=== PATIENT | female | born 1985 | race Caucasian/White ===

== ENCOUNTER 2021-07-22 16:51 | Emergency (ER) | payer MEDICAID ==
--- NOTE | 2021-07-22 17:53 | EDM.PDOC ---
ED HPI GENERAL MEDICAL PROBLEM - General Chief Complaint: Upper Extremity Injury/Pain Stated Complaint: R SHOULDER AND ARM PAIN/NUMBNESS Time Seen by Provider: 07/22/21 17:30 Source of Information: Reports: Patient, Old Records, RN History Limitations: Reports: No Limitations - History of Present Illness INITIAL COMMENTS - FREE TEXT/NARRATIVE: 36 yo female with a reported hx of cervical disc herniation had a fall a couple weeks ago in her shower. Since that time she has been experiencing increased pain in her neck and down into her R arm and also her upper back in the midline. She was seen right after the fall in the clinic and she says they didn't do much. She also states that now her Tramadol Rx was "lost" at [facility]. Since the clinic is closed today she is not able to straighten this out with them. 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: Other (see below) (usual meds) Bilateral Arm Pain Score (Numeric/FACES): 9 - Related Data Allergies Allergy/AdvReac Type Severity Reaction Status Date / Time amoxicillin [From Augmentin] Allergy Rash Verified 07/22/21 17:14 clavulanic acid Allergy Rash Verified 07/22/21 17:14 [From Augmentin] sulfamethoxazole Allergy Rash Verified 07/22/21 17:14 [From Septra] trimethoprim [From Septra] Allergy Rash Verified 07/22/21 17:14 Home Meds: Home Meds Acetaminophen [Tylenol Arthritis] 650 mg PO Q6H PRN 04/01/19 [History] Spironolactone [Aldactone] 50 mg PO BID 04/01/19 [History] Cholecalciferol (Vitamin D3) [Vitamin D3] 50 mcg PO DAILY 07/22/21 [History] Clindamycin Phosphate [Cleocin T 1% Gel] 0 gm TOP DAILY 07/22/21 [History] DULoxetine [Cymbalta] 90 mg PO DAILY 07/22/21 [History] Gabapentin [Neurontin] 600 mg PO Q4HR 07/22/21 [History] Levonorgestrel/Ethin.estradiol [Aviane-28 Tablet] 1 tab PO DAILY 07/22/21 [History] Lisdexamfetamine Dimesylate [Vyvanse] 40 mg PO DAILY 07/22/21 [History] Lisdexamfetamine [Vyvanse] 50 mg PO DAILY 07/22/21 [History] [place] Carbonate 300 mg PO BID 07/22/21 [History] Loratadine [Claritin] 10 mg PO DAILY 07/22/21 [History] Meloxicam 7.5 mg PO BID 07/22/21 [History] Minocycline [Minocin] 100 mg PO BID 07/22/21 [History] Oxybutynin Chloride [Oxybutynin Chloride ER] 10 mg PO BEDTIME 07/22/21 [History] Polyethylene Glycol [Polyox Wsr-301] 1 gm MC DAILY 07/22/21 [History] Sennosides/Docusate Sodium [Stool Softener-Laxative] 1 tab PO DAILY 07/22/21 [History] busPIRone [Buspar] 10 mg PO TID 07/22/21 [History] tiZANidine [Zanaflex] 4 mg PO DAILY 07/22/21 [History] traMADol HCl [Tramadol HCl ER] 200 mg PO DAILY 07/22/21 [History] traMADol [Ultram] 50 mg PO Q4H PRN 07/22/21 [History] traMADol [Ultram] 50 mg PO Q6H PRN #12 tablet 07/22/21 [Rx] Past Medical History HEENT History: Reports: Impaired Vision, Other (See Below) Other HEENT History: dry eyes Genitourinary History: Reports: Other (See Below) Other Genitourinary History: "leaky bladder" Musculoskeletal History: Reports: Back Pain, Chronic, Fibromyalgia, Neck Pain, Chronic Psychiatric History: Reports: Bipolar Endocrine/Metabolic History: Reports: Obesity/BMI 30+ Dermatologic History: Reports: Other (See Below) Other Dermatologic History: "boils" - Infectious Disease History Infectious Disease History: Reports: Herpes - Past Surgical History Neurological Surgical History: Reports: Discectomy, Lumbar Spine Musculoskeletal Surgical History: Reports: Arthroscopic Knee Social & Family History - Tobacco Use Tobacco Use Status *Q: Former Tobacco User Used Tobacco, but Quit: Yes Month/Year Tobacco Last Used: 1 year - Caffeine Use Caffeine Use: Reports: None - Recreational Drug Use Recreational Drug Use: No Review of Systems - Review of Systems Review Of Systems: See Below Constitutional: Reports: No Symptoms Eyes: Reports: No Symptoms Musculoskeletal: Reports: Shoulder Pain (R shoulder and neck) Skin: Reports: No Symptoms Neurological: Reports: Tingling (down right arm) ED EXAM, GENERAL - Physical Exam Exam: See Below Exam Limited By: No Limitations General Appearance: Alert, WD/WN, No Apparent Distress, Obese Head: Atraumatic, Normocephalic Neck: Limited Range of Motion (slight decrease) Respiratory/Chest: No Respiratory Distress Back Exam: Normal Inspection Extremities: Normal Inspection, Normal Range of Motion, Non-Tender, No Pedal Edema Neurological: Alert, Oriented, CN II-XII Intact, Normal Cognition, No Motor/Sensory Deficits Psychiatric: Normal Affect, Normal Mood Skin Exam: Warm, Dry, Intact, Normal Color, No Rash Course - Vital Signs Last Recorded V/S: Last Vital Signs Temp 36.5 C 07/22/21 17:11 Pulse 85 07/22/21 17:11 Resp 14 07/22/21 17:11 BP 146/88 H 07/22/21 17:11 Pulse Ox 98 07/22/21 17:11 Departure - Departure Time of Disposition: 17:56 Disposition: Home, Self-Care 01 Condition: Fair Clinical Impression: Cervical disc disease - Discharge Information *PRESCRIPTION DRUG MONITORING PROGRAM REVIEWED*: Not Applicable *COPY OF PRESCRIPTION DRUG MONITORING REPORT IN PATIENT AP: Not Applicable Prescriptions: traMADol [Ultram] 50 mg PO Q6H PRN #12 tablet PRN Reason: Pain Referrals: Amaris Chambers MD [Primary Care Provider] - Additional Instructions: Use the tramadol in addition to your usual meds. Contact your provider on Sunday if your symptoms persist. Sepsis Event Note (ED) - Evaluation Sepsis Screening Result: No Definite Risk - Focused Exam Vital Signs: Vital Signs Temp Pulse Resp BP Pulse Ox 07/22/21 17:11 36.5 C 85 14 146/88 H 98 07/22/21 17:07 36.5 C 85 14 146/88 H 98
== END 2021-07-22 18:04 | disposition home or self-care (01) ==
LOC: JP.ED 16:51
DX: M50.90 Cervical disc disorder, unspecified, unspecified cervical region (principal); E66.9 Obesity, unspecified; Z68.42 Body mass index [BMI] 45.0-49.9, adult; Z88.2 Allergy status to sulfonamides; Z88.8 Allergy status to other drugs, medicaments and biological substances; Z79.899 Other long term (current) drug therapy; Z87.891 Personal history of nicotine dependence
CPT/HCPCS: 99283

== ENCOUNTER 2024-07-22 21:53 | Emergency (ER) | payer MEDICARE, MEDICAID ==
[2024-07-22 22:17] LABS: APPEARANCE,URINE TURBID (CLEAR); BILIRUBIN,URINE NEGATIVE (NEGATIVE); COLOR,URINE YELLOW (YELLOW); GLUCOSE,URINE NEGATIVE (NEGATIVE); KETONES,URINE NEGATIVE (NEGATIVE); LEUKOCYTE ESTERASE,URINE LARGE (NEGATIVE); NITRITE,URINE NEGATIVE (NEGATIVE); OCCULT BLOOD,URINE LARGE (NEGATIVE); PROTEIN,URINE 30 mg/dL (NEGATIVE); UROBILINOGEN,URINE 0.2 EU/dL (0.2-1.0)
[2024-07-22 22:26] LABS: AMORPHOUS SEDIMENT,URINE NOT SEEN; BACTERIA,URINE MODERATE; EPITHELIAL CELLS,URINE FEW; MUCUS,URINE NOT SEEN; RBC,URINE PACKED (0-5); WBC,URINE PACKED (0-5)
== END 2024-07-22 22:55 | disposition home or self-care (01) ==
LOC: JP.ED 21:53
DX: N39.0 Urinary tract infection, site not specified (principal); E03.9 Hypothyroidism, unspecified; E66.9 Obesity, unspecified; Z87.891 Personal history of nicotine dependence; Z79.890 Hormone replacement therapy; Z79.899 Other long term (current) drug therapy; Z88.8 Allergy status to other drugs, medicaments and biological substances; Z88.0 Allergy status to penicillin; Z88.2 Allergy status to sulfonamides
CPT/HCPCS: 81001; 87086; 87088; 87186; 99283

== ENCOUNTER 2025-04-26 18:38 | Emergency (ER) | payer MEDICARE, MEDICAID ==
[2025-04-26 19:03] LABS: APPEARANCE,URINE CLOUDY (CLEAR); GLUCOSE,URINE NEGATIVE (NEGATIVE); OCCULT BLOOD,URINE LARGE (NEGATIVE)
[2025-04-26 19:14] LABS: SQUAMOUS EPITHELIAL CELLS,UR RARE /HPF; UROTHELIAL CELLS,URINE NOT SEEN /HPF
== END 2025-04-26 21:02 | disposition home or self-care (01) ==
LOC: JP.ED 18:38
DX: N30.01 Acute cystitis with hematuria (principal); E03.9 Hypothyroidism, unspecified; Z88.2 Allergy status to sulfonamides; Z88.0 Allergy status to penicillin; Z88.8 Allergy status to other drugs, medicaments and biological substances; Z79.890 Hormone replacement therapy; Z79.899 Other long term (current) drug therapy
CPT/HCPCS: 81001; 87086; 87088; 87186; 99283